=== PATIENT | female | born 1995 | race Caucasian/White ===

== ENCOUNTER 2023-09-04 11:54 | Outpatient (CLI) | payer OTHER, SELFPAY | END 2023-09-04 11:55 | disposition home or self-care (01) | LOC: NFLDREF 09-06 00:41 | PROVIDERS: Visit Provider Nurse Practitioner Family | DX: R11.10 Vomiting, unspecified (principal); R11.2 Nausea with vomiting, unspecified | CPT/HCPCS: 87086 ==